=== PATIENT | male | born 1955 | race Two or more races ===

== ENCOUNTER 2016-12-12 19:53 | Emergency (ER) | payer SELFPAY ==
[~2016-12-12] VITALS: Ht 160 cm; Wt 83.9 kg
--- NOTE | 2016-12-12 20:10 | NUR ---
PT BIB SELF C/O FEVER, CHILLS, AND PRODUCITVE COUGH WITH "YELLOW, WHITE PHLEGM", S/P [facility]ENT[facility] [employer]PL[facility]S 3 DAYS AGO. NOTED WITH CHEEK SWELLING TO BOTH SIDES. REPORTS DIAPHORESIS AND FEVER SIFTER AND MILLER, AFEBRILE NOW. SKIN WARM NONDIAPHORETIC. RESP EVEN UNLABORED. A/OX4. AMBULATORY WITH STEADY GAIT. IN ER BED 10 ON MONITOR.
[2016-12-12] MEDS ORDERED: IV SET PRIMARY 1 EA INFUS.SET MC ONE (20:22)
[2016-12-12] MEDS ORDERED: IV NS 0.9% 1,000 ML ONE (20:22)
[2016-12-12 20:28] LABS: APPEARANCE,URINE Clear (CLEAR); BILIRUBIN,URINE Negative (NEGATIVE); BLOOD, URINE Trace-intact Ery/uL (NEGATIVE); COLOR,URINE Yellow (YELLOW); KETONES,URINE Negative (NEGATIVE); LEUKOCYTE ESTERASE ,URINE Negative (NEGATIVE); NITRITE, URINE Negative (NEGATIVE); PROTEIN,URINE Negative (NEGATIVE); UGLUCOSE Negative (NEGATIVE); UROBILINOGEN,URINE 0.2 EU/dL (0.2)
[2016-12-12 20:29] LABS: ADD URINE CULTURE NO; BACTERIA,URINE Rare /HPF (None Seen); SQUAMOUS EPITHELIAL CELL,UR Rare /HPF (None Seen); WBC,URINE NONE SEEN /HPF (0-3)
[2016-12-12 20:30] LABS: BASOPHILS % (AUTO) 0.8 % (0.0-2.0); EOSINOPHILS % (AUTO) 0.7 % (0.0-6.0); HEMATOCRIT 41 % (39-51); HEMOGLOBIN 13.7 g/dL (13.5-17.5); LYMPHOCYTES # (AUTO) 0.8 /CMM (0.8-4.8); LYMPHOCYTES % (AUTO) 17.3 % (20.0-44.0); MEAN CORPUSCULAR HEMOGLOBIN 31 PG (26.0-33.0); MEAN CORPUSCULAR HGB CONC 34 g/dl (31.0-36.0); MEAN CORPUSCULAR VOLUME 92 fL (80-96); MONOCYTES # (AUTO) 0.6 /CMM (0.1-1.30); MONOCYTES % (AUTO) 13.2 % (2.0-12.0); NEUTROPHILS # (AUTO) 3.2 /CMM (1.8-8.9); PLATELET COUNT (AUTO) 181 /CMM (150-450); RDW COEFFICIENT OF VARIATION 12.5 (11.5-15.0); RED BLOOD CELL COUNT(AUTO) 4.42 MIL/uL (4.5-6.0); WHITE BLOOD COUNT (AUTO) 4.6 K/uL (4.3-11.0)
[2016-12-12] MEDS ORDERED: IV NS 0.9% 1,000 ML BAG IV ONE (20:30)
[2016-12-12 20:42] LABS: CALCIUM, SERUM 8.8 mg/dL (8.5-10.1); CARBON DIOXIDE 30 mmol/L (21-32); CHLORIDE 100 mmol/L (98-107); CREATININE 1.8 mg/dL (0.6-1.3); GFR 39 mL/min (>60); GLUCOSE 114 mg/dL (74-106); POTASSIUM 4.2 mmol/L (3.5-5.1); SODIUM SERUM 136 mmol/L (136-145); UREA NITROGEN, BLOOD 19 mg/dL (7-18)
[2016-12-12 20:45] LABS: INR 0.98 (0.87-1.13); PROTHROMBIN TIME 10.2 SECS (9.5-12.7)
[2016-12-12 20:48] LABS: ALANINE AMINOTRANSFERASE 30 U/L (12-78); ALBUMIN 3.6 g/dL (3.4-5.0); ALKALINE PHOSPHATASE 38 U/L (46-116); ASPARTATE AMINOTRANSFERASE 22 U/L (15-37); BILIRUBIN,DIRECT 0.1 mg/dL (0.0-0.2); BILIRUBIN,TOTAL 0.5 mg/dL (0.2-1.0); TOTAL PROTEIN, SERUM 7.1 g/dL (6.4-8.2)
[2016-12-12 20:50] LABS: TROPONIN I < 0.017 ng/mL (0.00-0.056)
[2016-12-12 20:53] LABS: LACTIC ACID 0.6 mmol/L (0.4-2.0)
[2016-12-12 21:45] VITALS: BP 126/75
--- NOTE | 2016-12-12 21:45 | NUR ---
Patient discharged to home in stable condition. Written and verbal after care instructions given. Patient verbalizes understanding of instruction. IV removed. Catheter intact and site benign. Pressure and 4x4 applied to site. No bleeding noted. AMBULATORY WITH STEADY GAIT.
== END 2016-12-12 21:46 | disposition home or self-care (01) ==
LOC: ER 19:55
DX: R50.9 Fever, unspecified (principal)
CPT/HCPCS: 36415; 71010-TC; 80048-TC; 80076-TC; 81000-TC; 83605-TC; 84484-TC; 85025-TC; 85730-TC; 87040-TC; 87086-TC; A4606; J7030; Z7610